=== PATIENT | male | born 1970 | race Two or more races ===

== ENCOUNTER 2018-05-27 18:19 | Inpatient (IN) | payer MEDICAID ==
[~2018-05-27] VITALS: Ht 172.7 cm; Wt 68.0 kg
[2018-05-27 18:20] VITALS: BP 167/67
--- NOTE | 2018-05-27 18:20 | NUR ---
ED Nurse Note: BROUGHT IN BY RA61 FROM WORK DUE TO SEIZURE. PER EMS, PT'S COWORKER FOUND PT HAVING SEIZURE X 60SEC. NO TRAUMA NOTED. PT IS NOW A/OX1, DROWSY. PT ADMITS THAT HE TOOK COCAINE BUT DOES NOT ANSWER ANY OTHER QUESTIONS. UNKNOWN TRIGGER FOR THE SEIZURE ACTIVITIES AND UNKNOWN HX. SEIZURE PRECAUTION DONE, SIDE RAILS PADDED, AGILE PROJECT MANAGER IS PLACED, AIRWAY PATENT.
--- NOTE | 2018-05-27 18:28 | NUR ---
ED Nurse Note: BLOOD SPECIMENS AND URINE COLLECTD AND SENT DOWN TO THE LAB.
--- NOTE | 2018-05-27 18:37 | NUR ---
ED Nurse Note: PT SENT DOWN TO CT HEAD VIA [facility]. VSS.
[2018-05-27 18:41] LABS: BASOPHILS % (AUTO) 1.5 % (0.0-2.0); EOSINOPHILS % (AUTO) 0.3 % (0.0-3.0); HEMOGLOBIN 15.6 G/DL (14.2-18.0); LYMPHOCYTES % (AUTO) 32.2 % (20.0-45.0); MEAN CORPUSCULAR VOLUME 91 FL (80-99); MONOCYTES % (AUTO) 4.8 % (1.0-10.0); NEUTROPHILS % (AUTO) 61.3 % (45.0-75.0); PLATELET COUNT 238 K/UL (150-450); RED BLOOD COUNT 4.93 M/UL (4.70-6.10); RED CELL DISTRIBUTION WIDTH 11.9 % (11.6-14.8); WHITE BLOOD COUNT 5.2 K/UL (4.8-10.8)
--- NOTE | 2018-05-27 18:47 | NUR ---
ED Nurse Note: PT BACK FROM CT HEAD, PT REMAINS STABLE.
[2018-05-27 18:50] LABS: APPEARANCE,URINE SLIGHTLY CLOUDY; BILIRUBIN, URINE NEGATIVE (NEGATIVE); COLOR,URINE PALE YELLOW; GLUCOSE, URINE (UA) NEGATIVE (NEGATIVE); KETONES,URINE NEGATIVE (NEGATIVE); LEUKOCYTE ESTERASE ,URINE NEGATIVE (NEGATIVE); NITRITE,URINE NEGATIVE (NEGATIVE); PH,URINE 5 (4.5-8.0); PROTEIN,URINE 2+ (NEGATIVE); UROBILINOGEN,URINE NORMAL MG/DL (0.0-1.0)
--- NOTE | 2018-05-27 18:50 | NUR ---
ED Nurse Note: PT STATES THAT HE HAS SEIZURE AND TOOK SEIZURE MEDICATION TODAY BUT DOES NOT REMEMBER THE NAME OF THE MED.
[2018-05-27 18:55] LABS: ANION GAP 15 mmol/L (5-15); BLOOD UREA NITROGEN 11 mg/dL (7-18); CALCIUM 8.5 MG/DL (8.5-10.1); CARBON DIOXIDE 24 MMOL/L (21-32); CHLORIDE 105 MMOL/L (98-107); CREATININE 0.9 MG/DL (0.55-1.30); POTASSIUM 3.4 MMOL/L (3.5-5.1); SODIUM 144 MMOL/L (136-145)
--- NOTE | 2018-05-27 18:57 | Emergency Room Report ---
History of Present Illness General Chief Complaint: Seizure Source: EMS Present Illness HPI 47-year-old male p/w seizure. Patient is not providing any history although he is awake but he is not talking to us, per EMS he had witnessed seizure by coworkers, generalized tonic clonic , lasted 1 minute. Did not hit head on ground. +post ictal phase even until now He is awake and talking somewhat, he did admit to using cocaine. He also says that he does have history of seizures. He is not really cooperating with much history Unknown tongue biting/urinary incontinence. Allergies: Coded Allergies: UNABLE TO ASSESS (Unverified , 05/27/18) Patient History Past Medical History: see triage record Past Surgical History: none Pertinent Family History: none Reviewed Nursing Documentation: PMH: Agreed; PSxH: Agreed Nursing Documentation-PMH Past Medical History Deferred: Pt Cognitively Impaired Past Medical History: No Stated History Review of Systems All Other Systems: negative except mentioned in HPI Physical Exam Vital Signs Date Time Temp Pulse Resp B/P (MAP) Pulse Ox O2 Delivery O2 Flow Rate FiO2 05/27/18 18:10 98.4 77 16 165/75 98 Room Air Sp02 EP Interpretation: reviewed, normal General Appearance: other - Postictal/confused/noncooperative Head: normocephalic, atraumatic Eyes: bilateral eye normal inspection, bilateral eye PERRL, bilateral eye EOMI ENT: normal ENT inspection, normal pharynx, normal voice, moist mucus membranes Neck: normal inspection, full range of motion, supple Respiratory: lungs clear, no respiratory distress, no retraction, no accessory muscle use Cardiovascular #1: normal inspection, regular rate, rhythm, no edema, normal capillary refill Cardiovascular #2: 2+ radial (R), 2+ radial (L) Gastrointestinal: normal inspection, non tender, soft, non-distended, no guarding Genitourinary: no CVA tenderness Musculoskeletal: normal inspection, back normal, normal range of motion, non- tender Neurologic: motor strength/tone normal, sensory intact, other - Moving all 4 extremities spontaneously Skin: normal inspection, normal color, no rash, warm/dry, well hydrated, normal turgor Procedures Critical Care Time Critical Care Time Critical care time of 40 minutes, was performed in order to assess and manage the high probability of imminent or life threatening deterioration to neurologic function, with frequent reassessment and excludes all billable procedures. Medical Decision Making Diagnostic Impression: Primary Impression: Seizure disorder Additional Impressions: NSTEMI (non-ST elevated myocardial infarction) Alcohol intoxication ER Course 47-year-old male p/w seizure DDX: Primary seizure, triggered by infection UTI/PNA vs. dehydration vs. medication non compliance Electrolyte disturbance: hypoglycemia vs. hyponatremia vs. hypocalcemia vs. hypomagnesemia Cardiac: Arrythmia/acs Intracranial pathology: intracranial bleed, stroke Tox/alcohol withdrawal Plan: BGM EKG Labs, tox labs Consider CT Ativan PRN / anti seizure meds. ER course: No further seizures in ED Has been stable during ED stay, He is not tachycardic and not tremulous. So at this point I do not believe that the seizures were called caused by alcohol withdrawal. History pertinent is noted to be elevated, patient is now more awake alert, he is not being that cooperative but he is ANO 4, he is not complaining of any chest pain or shortness of breath. We gave him an aspirin. We also loaded him with Keppra. Patient does have T-wave inversions in the lateral leads so I consulted [facility] cardiology, they do not believe this patient is having a STEMI Disposition: Admitted to Dr. Tomlinson EKG Diagnostic Results EP Interpretation: Yes Rate: normal Rhythm: NSR ST Segments: Left ventricular hypertrophy, T wave inversion V5 and V6 ASA given to patient: No Rhythm Strip EP Interpretation: Yes Rate: 70 Rhythm: NSR, no PVCs, no ectopy Chest X-ray CXR: Ordered: Yes 1 view Indication: Chest pain EP interpretation: Yes Interpretation: Mild cardiomegaly Impression: No acute disease Electronically signed by Дмитрий Gonzalez MD Laboratory Tests Test 05/27/18 18:00 05/27/18 18:20 White Blood Count 5.2 K/UL (4.8-10.8) Red Blood Count 4.93 M/UL (4.70-6.10) Hemoglobin 15.6 G/DL (14.2-18.0) Hematocrit 45.0 % (42.0-52.0) Mean Corpuscular Volume 91 FL (80-99) Mean Corpuscular Hemoglobin 31.6 PG (27.0-31.0) H Mean Corpuscular Hemoglobin Concent 34.6 G/DL (32.0-36.0) Red Cell Distribution Width 11.9 % (11.6-14.8) Platelet Count 238 K/UL (150-450) Mean Platelet Volume 7.2 FL (6.5-10.1) Neutrophils (%) (Auto) 61.3 % (45.0-75.0) Lymphocytes (%) (Auto) 32.2 % (20.0-45.0) Monocytes (%) (Auto) 4.8 % (1.0-10.0) Eosinophils (%) (Auto) 0.3 % (0.0-3.0) Basophils (%) (Auto) 1.5 % (0.0-2.0) Sodium Level 144 MMOL/L (136-145) Potassium Level 3.4 MMOL/L (3.5-5.1) L Chloride Level 105 MMOL/L (98-107) Carbon Dioxide Level 24 MMOL/L (21-32) Anion Gap 15 mmol/L (5-15) Blood Urea Nitrogen 11 mg/dL (7-18) Creatinine 0.9 MG/DL (0.55-1.30) Estimate Glomerular Filtration Rate > 60 mL/min (>60) Glucose Level 153 MG/DL (74-106) H Calcium Level 8.5 MG/DL (8.5-10.1) Total Bilirubin 0.3 MG/DL (0.2-1.0) Aspartate Amino Transferase (AST) 29 U/L (15-37) Alanine Aminotransferase (ALT) 25 U/L (12-78) Alkaline Phosphatase 91 U/L (46-116) Total Creatine Kinase 347 U/L (26-308) H Troponin I 1.088 ng/mL (0.000-0.056) Total Protein 7.6 G/DL (6.4-8.2) Albumin 3.9 G/DL (3.4-5.0) Globulin 3.7 g/dL Albumin/Globulin Ratio 1.1 (1.0-2.7) Salicylates Level 0.4 ug/mL (2.8-20) L Acetaminophen Level < 2 MCG/ML (10-30) L Serum Alcohol 454 mg/dL Urine Color Pale yellow Urine Appearance Slightly cloudy Urine pH 5 (4.5-8.0) Urine Specific [place] 1.010 (1.005-1.035) Urine Protein 2+ (NEGATIVE) H Urine Glucose (UA) Negative (NEGATIVE) Urine Ketones Negative (NEGATIVE) Urine Blood 5+ (NEGATIVE) H Urine Nitrite Negative (NEGATIVE) Urine Bilirubin Negative (NEGATIVE) Urine Urobilinogen Normal MG/DL (0.0-1.0) Urine Leukocyte Esterase Negative (NEGATIVE) Urine RBC Tntc /HPF (0 - 0) H Urine WBC 0-2 /HPF (0 - 0) Urine Squamous Epithelial Cells Occasional /LPF Urine Bacteria Moderate /HPF (NONE) H Urine Opiates Screen Negative (NEGATIVE) Urine Barbiturates Screen Negative (NEGATIVE) Phencyclidine (PCP) Screen Negative (NEGATIVE) Urine Amphetamines Screen Negative (NEGATIVE) Urine Benzodiazepines Screen Negative (NEGATIVE) Urine Cocaine Screen Negative (NEGATIVE) Urine Marijuana (THC) Screen Negative (NEGATIVE) CT/MRI/US Diagnostic Results CT/MRI/US Diagnostic Results : Imaging Test Ordered: CT HEAD Impression normal reviewed by me and radiologist Last Vital Signs Date Time Temp Pulse Resp B/P (MAP) Pulse Ox O2 Delivery O2 Flow Rate FiO2 05/27/18 18:20 98.4 73 20 167/67 96 Room Air Disposition: ADMITTED INPATIENT Condition: Serious Scripts Unable to Obtain Active Prescriptions or Reported Meds Дмитрий Gonzalez M.D. May 27, 2018 18:57
[2018-05-27 19:01] LABS: ALANINE AMINOTRANSFERASE 25 U/L (12-78); ALBUMIN 3.9 G/DL (3.4-5.0); ALBUMIN/GLOBULIN RATIO 1.1 (1.0-2.7); ALKALINE PHOSPHATASE 91 U/L (46-116); ASPARTATE AMINO TRANSFERASE 29 U/L (15-37); BILIRUBIN,TOTAL 0.3 MG/DL (0.2-1.0); CREATINE KINASE 347 U/L (26-308)
--- NOTE | 2018-05-27 19:09 | NUR ---
ED Nurse Note: NOTIFIED ERMD REGARDING PT'S RASH AROUND BILATERAL FOREARMS AND TROPONIN LEVEL.
--- NOTE | 2018-05-27 19:09 | NUR ---
HAND-OFF: Report given to AMY RUIZ.PT IN [facility], Doe/TONIE1. NO S/S OF DISTRESS.
[2018-05-27] MEDS ORDERED: DiphenhydrAMINE 50mg/ml Inj IVP ONE (19:15)
[2018-05-27] MEDS ORDERED: Solu-MEDROL 125mg Inj IVP ONE (19:15)
[2018-05-27] MEDS ORDERED: levETIRAcetam 1,000mg/NS100ml 100 ML IVPB ONE (20:00)
--- NOTE | 2018-05-27 21:46 | NUR ---
ED Nurse Note: Report called in to [place] REYES, patient is currently sleeping vital signs stable.
--- NOTE | 2018-05-27 22:11 | NUR ---
NURSE NOTES: Received pt from AMY Crowley. Pt mildly unstable when observed ambulating to the bathroom. Bed in lowest position. Call light within reach. Will continue to monitor.
--- NOTE | 2018-05-27 23:11 | NUR ---
NURSE NOTES: Called and left a message with Dr. Tomlinson regarding admission orders. Awaiting call back.
--- NOTE | 2018-05-27 23:50 | NUR ---
NURSE NOTES: Received the following orders from Dr. Tomlinson: - ASpirin 81 mg PO qd - Ativan 1mg IV Q2/PRN for seizure - Diet NPO - Tylenol 500 mg PO Q4/PRN - Banana bag 60 cc IV for one liter - DVT SCD - AM troponin - code status: follow patients wishes For seizure activity inform Dr. Arndt and for any cardiac issues call Dr. Ventura (Both have been consulted by Dr. Tomlinson already) Will input/carry out orders and will continue to monitor.
[2018-05-28] VITALS: BP 132/51
[2018-05-28] MEDS ORDERED: Acetaminophen 500mg (ES) tab ORAL PRN
[2018-05-28] MEDS ORDERED: LORazepam Inj 2mg/ml 1ml IV PRN
[2018-05-28] MEDS ORDERED: Folic Acid 1 MG, Multivitamin - 12 Injection 10 ML, Thiamine HCl 100 MG in Sodium Chlor... IV ONE ×2 (02:00→08:00)
[2018-05-28 04:00] VITALS: BP 130/63
--- NOTE | 2018-05-28 07:16 | NUR ---
HAND-OFF: Report given to AMY Sargent. Pt stable and p200 applied. Addendum: 05/28/18 at 0742 by Jamaica Becerra RN HAND-OFF: Report given to RN. Aisha Pt stable. No p200.
--- NOTE | 2018-05-28 07:17 | NUR ---
NURSE NOTES: Received report from [place]/RN, Patient is awake and alert, No distress/SOB noted. IV intact. Bed in low position, Call light in reach. Will continue plan of care.
[2018-05-28 08:00] VITALS: BP 133/81
[2018-05-28] MEDS: Thiamine 100mg tab ORAL SCH (08:48)
[2018-05-28] MEDS: Aspirin Baby 81mg NG SCH (08:48)
--- NOTE | 2018-05-28 09:54 | NUR ---
NURSE NOTES: Per pharmacy, can Y-Site Banana bag IV and magnesium sulfate IV. Noted. Will continue to monitor patient.
--- NOTE | 2018-05-28 10:07 | NUR ---
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 NSTEMI ALCOHOL INTOXICATION 98.4 77 16 165/75 98% ON RA TROPONIN(+) 1.088 SERUM ALCOHOL+454 IS: 1L NS BOLUS IV KEPPRA X1 ASA PO IV SOLUMEDROL IV BENADRYL CT HEAD CXR : TO TELEMETRY PLAN: SEIZURE PRECAUTIONS NEURO CHECKS Addendum: 05/28/18 at 1025 by BALJINDER TAN LVN LVN INTERQUAL CRITERIA MET
--- NOTE | 2018-05-28 10:55 | Diagnostic Imaging Report ---
Indication: Headache Technique: Contiguous 5 mm thick transaxial imaging of the head obtained in a Siemens Sensation [address] scanner. Soft tissue and bone windows generated. Automatic Exposure Control was utilized. Total Dose length Product (DLP): 1453.[address] Dose Index Volume (CTDIvol): 70.38 mGy Comparison: none Findings: The size and configuration of the cortical sulci, basal cisterns, and ventricles are within normal limits for age. There is no mass effect, midline shift, or edema identified. There is no evidence of acute hemorrhage or abnormal intra-axial or extra-axial fluid collections. The bones and soft tissues are unremarkable. Impression: No mass effect, edema or acute bleed. The CT scanner at [facility] is accredited by the [employer] and the scans are performed using dose optimization techniques as appropriate to a performed exam including Automatic Exposure control.
--- NOTE | 2018-05-28 11:03 | Consultation ---
Consult Note Consult Note HPI 47-year-old male p/w seizure. Patient is not providing any history although he is awake but he is not talking to us, per EMS he had witnessed seizure by coworkers, generalized tonic clonic , lasted 1 minute. Did not hit head on ground. +post ictal phase even until now He is awake and talking somewhat, he did admit to using cocaine. He also says that he does have history of seizures. He is not really cooperating with much history Unknown tongue biting/urinary incontinence. none allergy interviewed examined Assessment/Plan Sz NSTEMI Etoh toxicity Hydtrate asa nitro IV fluids protonix thiamin per orders Gaetano Cantor MD May 28, 2018 11:03
[2018-05-28 11:13] LABS: ANION GAP 18 mmol/L (5-15); BLOOD UREA NITROGEN 15 mg/dL (7-18); CALCIUM 8.3 MG/DL (8.5-10.1); CARBON DIOXIDE 20 MMOL/L (21-32); CHLORIDE 106 MMOL/L (98-107); CREATININE 0.9 MG/DL (0.55-1.30); SODIUM 144 MMOL/L (136-145)
[2018-05-28 11:24] LABS: ALANINE AMINOTRANSFERASE 24 U/L (12-78); ALBUMIN 3.7 G/DL (3.4-5.0); ALKALINE PHOSPHATASE 89 U/L (46-116); ASPARTATE AMINO TRANSFERASE 31 U/L (15-37); BILIRUBIN,TOTAL 0.4 MG/DL (0.2-1.0); CHOLESTEROL 219 MG/DL (< 200); HDL CHOLESTEROL 105 MG/DL (40-60); PHOSPHORUS 3.9 MG/DL (2.5-4.9); TRIGLYCERIDES 59 MG/DL (30-150)
--- NOTE | 2018-05-28 11:25 | Diagnostic Imaging Report ---
Indication: Dyspnea Comparison: None A single view chest radiograph was obtained. Findings: Cardiomediastinal appearance is prominent. The lungs are low in volume but clear. Pulmonary vascularity is appropriate. The diaphragmatic contour is smooth and costophrenic angles are sharp. No pleural effusions are identified. The bones are unremarkable. Impression: No acute findings
[2018-05-28] MEDS: Nitroglycerin Patch 0.4mg TDERMAL SCH (11:47)
[2018-05-28 12:00] VITALS: BP 158/76
[2018-05-28] MEDS: D5 1/2NS w/KCl 20mEq 1,000 ML IV SCH (12:04)
--- NOTE | 2018-05-28 14:56 | Cardiology Report ---
APPROVED REPORT EKG Measurement Heart [id number] Normal sinus rhythm Left ventricular hypertrophy with QRS widening and repolarization abnormality Abnormal ECG
[2018-05-28 16:00] VITALS: BP 130/63
[2018-05-28] MEDS ORDERED: Gadavist 7.5mMol/7.5ml vial IV PRN (17:30)
--- NOTE | 2018-05-28 19:30 | NUR ---
NURSE NOTES: Report received form AMY Leonard. Observed pt lying on the bed, awake, denies any pain at this time. A/O x4. SR with security monitor. On Room air with no signs of sob. Skin intact. Pt is ambulatory and went to bathroom with minimal assistance. IV on L FA 20G, running D5 1/2NS KCL 20meq and banana bag, intact and patent. Bed in the lowest position. Side rails up x2. Will continue to monitor.
[2018-05-28 20:00] VITALS: BP 135/56
--- NOTE | 2018-05-28 20:32 | Cardiology Progress Note ---
Assessment/Plan Assessment/Plan The patient is seen and examined, full consult note will be dictated shortly. Objective Last 24 Hour Vital Signs Date Time Temp Pulse Resp B/P (MAP) Pulse Ox O2 Delivery O2 Flow Rate FiO2 05/28/18 16:00 96.9 73 18 130/63 (85) 97 05/28/18 16:00 81 05/28/18 12:00 89 05/28/18 12:00 98.4 81 17 158/76 (103) 96 05/28/18 11:47 130/63 05/28/18 09:00 Room Air 05/28/18 08:00 84 05/28/18 08:00 98.4 89 18 133/81 (98) 96 05/28/18 07:08 Room Air 05/28/18 04:00 73 05/28/18 04:00 96.9 73 18 130/63 (85) 97 05/28/18 00:00 65 05/28/18 00:00 98.7 70 18 132/51 (78) 95 05/27/18 21:47 98.4 73 20 167/67 96 Room Air Laboratory Tests Test 05/28/18 06:10 Sodium Level 144 MMOL/L (136-145) Potassium Level 4.0 MMOL/L (3.5-5.1) Chloride Level 106 MMOL/L (98-107) Carbon Dioxide Level 20 MMOL/L (21-32) L Anion Gap 18 mmol/L (5-15) H Blood Urea Nitrogen 15 mg/dL (7-18) Creatinine 0.9 MG/DL (0.55-1.30) Estimat Glomerular Filtration Rate > 60 mL/min (>60) Glucose Level 114 MG/DL (74-106) H Hemoglobin A1c 5.5 % (4.3-6.0) Uric Acid 9.3 MG/DL (2.6-7.2) H Calcium Level 8.3 MG/DL (8.5-10.1) L Phosphorus Level 3.9 MG/DL (2.5-4.9) Magnesium Level 1.8 MG/DL (1.8-2.4) Total Bilirubin 0.4 MG/DL (0.2-1.0) Aspartate Amino Transf (AST/SGOT) 31 U/L (15-37) Alanine Aminotransferase (ALT/SGPT) 24 U/L (12-78) Alkaline Phosphatase 89 U/L (46-116) Troponin I 1.062 ng/mL (0.000-0.056) C-Reactive Protein, Quantitative < 0.4 mg/dL (0.00-0.90) Total Protein 7.4 G/DL (6.4-8.2) Albumin 3.7 G/DL (3.4-5.0) Globulin 3.7 g/dL Albumin/Globulin Ratio 1.0 (1.0-2.7) Triglycerides Level 59 MG/DL (30-150) Cholesterol Level 219 MG/DL (< 200) H LDL Cholesterol 98 mg/dL (<100) HDL Cholesterol 105 MG/DL (40-60) H Cholesterol/HDL Ratio 2.1 (3.3-4.4) L Thyroid Stimulating Hormone (TSH) 0.305 uiU/mL (0.358-3.740) Rapid Plasma Reagin Pending Treponema pallidum Ab (FTA-ABS) Pending Microbiology Date/Time Source Procedure Growth Status 05/27/18 18:20 Urine,Clean Catch Urine Culture - Preliminary NO GROWTH Resulted Hector Ventura MD May 28, 2018 20:32
[2018-05-28] MEDS: dilTIAZem HCl 30mg tab ORAL SCH (21:55)
--- NOTE | 2018-05-28 23:02 | Consultation ---
History of Present Illness General Chief Complaint: Seizure Present Illness HPI 47 yo male with history of alcohol dependence, had a seizure, and withdrawal symptoms the pt was tachy and tremulous the pt was not able to provide hx Allergies: Coded Allergies: No Known Allergies (Unverified , 05/28/18) Medication History Scheduled Hydrochlorothiazide* (Hydrochlorothiazide*), 25 MG ORAL DAILY, (Reported) Patient History Limited by: medical condition History Provided By: Patient, Medical Record, PMD Healthcare decision maker mary ellen [phone] Resuscitation status Full Code Advanced Directive on File Review of Systems Psychiatric: Reports: anxiety, depressed feelings, emotional problems Physical Exam General Appearance: alert, agitated Last 24 Hour Vital Signs Date Time Temp Pulse Resp B/P (MAP) Pulse Ox O2 Delivery O2 Flow Rate FiO2 05/28/18 21:55 70 149/71 05/28/18 16:00 96.9 73 18 130/63 (85) 97 05/28/18 16:00 81 05/28/18 12:00 89 05/28/18 12:00 98.4 81 17 158/76 (103) 96 05/28/18 11:47 130/63 05/28/18 09:00 Room Air 05/28/18 08:00 84 05/28/18 08:00 98.4 89 18 133/81 (98) 96 05/28/18 07:08 Room Air 05/28/18 04:00 73 05/28/18 04:00 96.9 73 18 130/63 (85) 97 05/28/18 00:00 65 05/28/18 00:00 98.7 70 18 132/51 (78) 95 Laboratory Tests Test 05/28/18 06:10 Sodium Level 144 MMOL/L (136-145) Potassium Level 4.0 MMOL/L (3.5-5.1) Chloride Level 106 MMOL/L (98-107) Carbon Dioxide Level 20 MMOL/L (21-32) L Anion Gap 18 mmol/L (5-15) H Blood Urea Nitrogen 15 mg/dL (7-18) Creatinine 0.9 MG/DL (0.55-1.30) Estimat Glomerular Filtration Rate > 60 mL/min (>60) Glucose Level 114 MG/DL (74-106) H Hemoglobin A1c 5.5 % (4.3-6.0) Uric Acid 9.3 MG/DL (2.6-7.2) H Calcium Level 8.3 MG/DL (8.5-10.1) L Phosphorus Level 3.9 MG/DL (2.5-4.9) Magnesium Level 1.8 MG/DL (1.8-2.4) Total Bilirubin 0.4 MG/DL (0.2-1.0) Aspartate Amino Transf (AST/SGOT) 31 U/L (15-37) Alanine Aminotransferase (ALT/SGPT) 24 U/L (12-78) Alkaline Phosphatase 89 U/L (46-116) Troponin I 1.062 ng/mL (0.000-0.056) C-Reactive Protein, Quantitative < 0.4 mg/dL (0.00-0.90) Total Protein 7.4 G/DL (6.4-8.2) Albumin 3.7 G/DL (3.4-5.0) Globulin 3.7 g/dL Albumin/Globulin Ratio 1.0 (1.0-2.7) Triglycerides Level 59 MG/DL (30-150) Cholesterol Level 219 MG/DL (< 200) H LDL Cholesterol 98 mg/dL (<100) HDL Cholesterol 105 MG/DL (40-60) H Cholesterol/HDL Ratio 2.1 (3.3-4.4) L Thyroid Stimulating Hormone (TSH) 0.305 uiU/mL (0.358-3.740) Rapid Plasma Reagin Pending Treponema pallidum Ab (FTA-ABS) Pending Height (Feet): 5 Height (Inches): 8.00 Weight (Pounds): 150 Medications Current Medications Medications (Trade) Dose Ordered Sig/Ruthann Route PRN Reason Start Time Stop Time Status Last Admin Dose Admin Acetaminophen (Tylenol) 500 mg Q4H PRN ORAL Mild Pain/Temp > 100.5 05/28/18 00:00 06/27/18 00:00 Aspirin (ASA) 81 mg DAILY NG 05/28/18 09:00 06/27/18 08:59 05/28/18 08:48 Dextrose/ Electrolytes 1,000 ml @ 75 mls/hr [id number] IV 05/28/18 12:00 06/27/18 11:59 05/28/18 12:04 Diazepam (Valium) 10 mg EVERY 2 HOURS PRN ORAL For Anxiety 05/27/18 23:15 06/03/18 23:14 Diltiazem HCl (Cardizem) 30 mg EVERY 8 HOURS ORAL 05/28/18 22:00 06/27/18 21:59 05/28/18 21:55 Folic Acid (Folate) 1 mg DAILY ORAL 05/28/18 09:00 06/27/18 08:59 05/28/18 08:48 Folic Acid 1 mg/ Multivitamins 10 ml/Thiamine HCl 100 mg/Sodium Chloride 1,011.2 ml @ 60 mls/hr ONCE ONCE IV 05/28/18 08:00 05/29/18 00:51 05/28/18 09:38 Gadobutrol (Gadavist) 7.5 mmol NOW PRN IV Radiology Procedure 05/28/18 17:30 06/01/18 17:26 Levetiracetam (Keppra) 500 mg Q12HR NG 05/29/18 09:00 06/28/18 08:59 Lorazepam (Ativan 2mg/ml 1ml) 1 mg Q2HR PRN IV For Seizures 05/28/18 00:00 06/04/18 00:00 Mirtazapine (Remeron) 7.5 mg BEDTIME ORAL 05/28/18 21:00 06/27/18 20:59 05/28/18 21:47 Nitroglycerin (Ntg) 1 patch Q24H TDERMAL 05/28/18 11:00 06/27/18 10:59 05/28/18 11:47 Pantoprazole (Protonix) 40 mg Q12HR ORAL 05/28/18 11:00 06/27/18 10:59 05/28/18 21:46 Thiamine HCl (Vitamin B1) 100 mg DAILY ORAL 05/28/18 09:00 06/27/18 08:59 05/28/18 08:48 Assessment/Plan Problem List: (1) Alcohol dependence ICD Codes: F10.20 - Alcohol dependence, uncomplicated SNOMED: 76349198 (2) Alcohol withdrawal ICD Codes: F10.239 - Alcohol dependence with withdrawal, unspecified SNOMED: [id number] Assessment/Plan Valium prn thiamine Remeron folate Ryan Raphael MD May 28, 2018 23:02
[2018-05-29] VITALS: BP 138/56
[2018-05-29] MEDS: D5 1/2NS w/KCl 20mEq 1,000 ML IV SCH ×2 (01:26→14:08)
[2018-05-29 04:00] VITALS: BP 152/93
--- NOTE | 2018-05-29 04:00 | Consultation ---
DATE OF CONSULTATION: 05/28/2018 NEUROLOGIC CONSULTATION CONSULTING PHYSICIAN: Ziggy Arndt M.D. This is the first [facility] admission for this 47-year-old probably right-handed man who was admitted with a witnessed seizure. I was asked to see the patient because of his seizure. HISTORY OF PRESENT ILLNESS: The patient has had a history of migraine headaches going back to childhood. There is no history of seizure disorder in childhood. The patient states he is a heavy drinker. He started drinking about a week ago. He also apparently admitted to cocaine. However, he has never had any seizures in the past. The patient cannot give a history. He was apparently noted to have a generalized tonic-clonic seizure lasting about a minute by his coworkers. He was postictal, not talking emergency room. His CBC is also normal with a white count of 5200, a hemoglobin 15.6, platelet count of 338,000. His chemistries were normal except a creatinine of 3.4, glucose of 153. CPK is 347. His troponin was 1.08, today it is 1.062. Today, the carbon dioxide is 20 with an anion gap of 18, glucose 114, uric acid 10.3, calcium 8.3. Cholesterol 219 with HDL cholesterol 105. TSH is 0.305. His hemoglobin A1c is 5.5. Drug screen revealed a serum alcohol of 454, acetaminophen level less than 2. His urine cocaine screen is negative. Rest of the drug screen was negative. Urinalysis is pretty much unremarkable. Urine protein was 2. Urine blood was 5. He had a CT scan of the brain, which was normal. This is without contrast. Chest x-ray is basically intact. There are no acute findings. The electrocardiogram yesterday revealed left ventricular hypertrophy, QRS widening, and repolarization abnormality. I was asked to see the patient today for a seizure. The patient denies any previous history of head injuries or strokes. He denies any memory loss. There is no language disorder. He denies spontaneous diplopia. Probably denies blurred vision. No muscle weakness. He has occasional tremors in his hands after he drinks alcohol. There is no hearing loss or dizzy spells, but he has bilateral tinnitus in both ears. He has no gait disorder, paresthesias, or dysesthesias. He cannot tell if he had any incontinence or tongue biting. Postictal headaches because he certainly does not have a headache now. He has also denied taking illegal drugs. He denied smoking. Dr. Gaetano Cantor saw the patient in consultation. See his note. There is no family history of neurologic disease. PAST MEDICAL HISTORY/PAST MEDICAL ILLNESSES: 1. Alcohol and drug dependent personality. 2. He denies all other past medical illnesses. ALLERGIES: None. HABITS: See above. SOCIAL HISTORY: He is , has 2 children, in good health. SURGERIES: He did have jaw surgery in the past, reason is unclear. FAMILY HISTORY: His father is . He does not know why. His mother and siblings are in good health. REVIEW OF SYSTEMS: CONSTITUTIONAL: His appetite is good. His weight is stable. CARDIAC: Denies any palpitation or shortness of breath. There is no leg edema. The rest of review of systems is noncontributory. PHYSICAL EXAMINATION: GENERAL: This is a well-developed, well-nourished man lying in bed, in no acute distress. VITAL SIGNS: Blood pressure is 158/76, temperature is 98.4 degrees, pulse rate is 81, respiratory rate 17, pulse oximetry is 96. HEENT: Examination of head, ears, eyes, nose, mouth, throat is normal. I could not see any tongue lesions. NECK: The neck is supple. There is no tenderness. Carotids are +2 with bilateral transmitted murmurs noted or bilateral bruits. LUNGS: Clear to auscultation. CARDIOVASCULAR: He has a grade 3/6 and also has a palpable thrill in the right second intercostal space, midclavicular line. That is a systolic murmur. There is S1 and also S2, increases with respiration, radiates to the left sternal border and to the apex. ABDOMEN: The abdomen is nearly scaphoid. Bowel sounds intact. There is no tenderness, masses, or organomegaly. BACK: There is no tenderness to percussion. EXTREMITIES: The extremities are basically intact. There is no edema. Peripheral pulses are +2 even in the lower extremities. NEUROLOGIC: MENTAL STATUS: He is alert and awake. Judgment could not be tested. Affect is appropriate. Memory, past memory was intact to his birthday, 1970. Immediate recall is 3/3 objects. Recent recall 0/3 objects at 5 minutes. Intellect, similarities are concrete i.e., cat and dog, there was nothing similar to them; train and bicycle, both have wheels. Orientation, time - he knew it is 05/28/2018 and knew it was Saturday; place - he did not know where he was except he knew he was in the hospital, he did not know the name of the hospital; person - he was oriented to person. Language function, as far as I can tell, his spoken speech was fairly fluent in Gabonese. He could understand my imperfect Gabonese. He can repeat a simple sentence. He could spell world in [place]onese forwards "[place]," but could not spell it backwards. CRANIAL NERVE EXAMINATION: CRANIAL NERVE II: Visual santos are intact to confrontation. Fundi were benign. CRANIAL NERVES III, IV, AND : Extraocular motility was full with saccadic smooth pursuit noted. Some nystagmus noted. The pupils are approximately 5 mm, round, and light reactive. CRANIAL NERVE V: Facial and corneal sensation is intact bilaterally. Pterygoid strength is 5/5. CRANIAL NERVE VII: Facial strength is 5/5 bilaterally. CRANIAL NERVE VIII: Auditory acuity is basically intact bilaterally. CRANIAL NERVES IX AND X: Gag is intact bilaterally. CRANIAL NERVE XI: Sternocleidomastoid strength is 5/5. CRANIAL NERVE XII: Tongue protrudes in the midline without fasciculations or atrophy. MUSCLE EXAMINATION: Muscle bulk and tone are normal. Strength 5/5 proximally and distally without pronator drift. There is very little to no tremor with hands extended and no asterixis. REFLEXES: +2 in the upper extremities, +2 at the knees, 0 at the ankles with downgoing toes on testing for Babinski response. COORDINATION: Hbaqkv-ka-ywgy, rapid alternating movements, yukb-fi-zbvn testing are intact. GAIT AND STATION: Not tested. SENSORY: He probably had decreased vibration to his shins. Pinprick and proprioception and fine touch were normal. IMPRESSION: The patient probably has alcohol-induced seizure, probably partly withdrawal. He also has encephalopathy. Initially, it is probably postictal and he may also be slightly postictal at this time. There is a question if he had any seizures in the past. He told me he has not had seizures. The patient was placed on Keppra 1000 mg 1 bag given probably and given folic acid, lorazepam p.r.n. and Remeron, which seizure threshold fluids. Keppra itself can also change mental status. If he continues to have problems with this , we may want to reduce the Keppra to 500 mg b.i.d.; however, in my experience, patients discharge. It is one of the reasons why treat him. The patient probably needs EEG and MRI scan of the brain since it does not sound like he had any in the past. I do not think he needs a lumbar puncture at this time. PLAN: 1. EEG awake and asleep. 2. MRI scan of the brain with seizure protocol. 3. Continue to treat for alcohol withdrawal. 4. RPR and FTA. Thank you for this interesting case. Ziggy Arndt MD DR: HARSHA JOB#: [id number] CC:
--- NOTE | 2018-05-29 04:00 | History and Physical Report ---
DATE OF ADMISSION: 05/27/2018 NOTE: POOR AUDIO HISTORY OF PRESENT ILLNESS: The patient has a history of alcohol abuse, had a seizure, and withdrawal symptoms at this point. He is now tachycardic and tremulous. He states that he does have a history of seizures. CT scan of brain was negative. He did also have an elevated troponin, T-wave inversions in the lateral leads, admitted for non-STEMI as well as seizures. The patient has history of alcohol. Denies any nausea, vomiting, or diarrhea. details. Denies shortness of breath. Denies cough. Denies fever or chills. Denies headache. Denies chest pain. PAST MEDICAL HISTORY: Alcohol abuse and hypertension. PAST SURGICAL HISTORY: . ALLERGIES: No known allergies. MEDICATIONS: None. FAMILY HISTORY: Noncontributory. SOCIAL HISTORY: Denies history of drug abuse. Denies history of smoking. Does have history of alcohol abuse. REVIEW OF SYSTEMS: HEENT: Denies headaches. Denies shortness of breath. Denies cough. CARDIOVASCULAR: Denies chest pain. . [employer]: No change in speech pattern. seizures at this time. PHYSICAL EXAMINATION: VITAL SIGNS: Temperature 98.4, pulse is 89, and blood pressure 133/81. HEENT: PERRLA. NECK: Supple. No lymphadenopathy. CHEST: Clear to auscultation CARDIOVASCULAR: Regular rate and rhythm. No murmurs or extra sounds. GASTROINTESTINAL: Soft, nontender, and nondistended. No organomegaly. EXTREMITIES: No edema. Moves all four extremities. . ASSESSMENT: 1. Seizure. 2. Non-STEMI. 3. Rule out alcohol withdrawal. PLAN: I have asked Dr. Raphael, Dr. Sakshi Dr. to see the patient for the above-mentioned diagnoses and treatment. Shala Tomlinson M.D. DR: ADALI JOB#: [id number] CC:
[2018-05-29] MEDS: dilTIAZem HCl 30mg tab ORAL SCH ×3 (06:00→21:32)
--- NOTE | 2018-05-29 07:40 | NUR ---
HAND-OFF: Report given to AMY Cunningham. No acute distress noted at this time.
--- NOTE | 2018-05-29 07:41 | NUR ---
NURSE NOTES: Received report from AMY Lugo. Patient is resting in bed, sleeping in semi fowlers position. Patient is on NPO status. No signs and symptoms of acute distress at this time. Safety precaution in place; two side rails up, call light and bed side table within reach, bed in lowest position, brakes and alarm on . Will continue to monitor .
[2018-05-29 08:00] VITALS: BP 146/54
[2018-05-29] MEDS: levETIRAcetam 500mg/5ml Liquid NG SCH ×2 (09:26→21:32)
[2018-05-29] MEDS: Thiamine 100mg tab ORAL SCH (09:26)
[2018-05-29] MEDS: Aspirin Baby 81mg NG SCH (09:26)
--- NOTE | 2018-05-29 09:41 | General Progress Note ---
Assessment/Plan Problem List: (1) Alcohol intoxication ICD Codes: F10.929 - Alcohol use, unspecified with intoxication, unspecified SNOMED: 87746379 (2) Seizure disorder ICD Codes: G40.909 - Epilepsy, unspecified, not intractable, without status epilepticus SNOMED: 653245470 (3) NSTEMI (non-ST elevated myocardial infarction) ICD Codes: I21.4 - Non-ST elevation (NSTEMI) myocardial infarction SNOMED: 59499982 Status: progressing Assessment/Plan no cp check troponin nstemi etoh abuse Subjective ROS Limited/Unobtainable: Yes Allergies: Coded Allergies: No Known Allergies (Unverified , 05/28/18) Objective Last 24 Hour Vital Signs Date Time Temp Pulse Resp B/P (MAP) Pulse Ox O2 Delivery O2 Flow Rate FiO2 05/29/18 08:00 98.0 61 20 146/54 (84) 97 05/29/18 06:00 59 140/53 05/29/18 04:00 57 05/29/18 04:00 98.1 73 19 152/93 (112) 97 05/29/18 00:00 64 05/29/18 00:00 98.3 66 16 138/56 (83) 95 05/28/18 21:55 70 149/71 05/28/18 21:00 Room Air 05/28/18 20:00 98.1 63 18 135/56 (82) 97 05/28/18 20:00 72 05/28/18 16:00 96.9 73 18 130/63 (85) 97 05/28/18 16:00 81 05/28/18 12:00 89 05/28/18 12:00 98.4 81 17 158/76 (103) 96 05/28/18 11:47 130/63 Intake and Output 05/28/18 05/29/18 18:59 06:59 Intake Total 225 ml Balance 225 ml Intake IV Total 225 ml Height (Feet): 5 Height (Inches): 8.00 Weight (Pounds): 150 Cardiovascular: regular rhythm Respiratory/Chest: lungs clear Abdomen: soft Shala Tomlinson MD May 29, 2018 09:41
[2018-05-29] MEDS: Nitroglycerin Patch 0.4mg TDERMAL SCH (11:22)
[2018-05-29 12:00] VITALS: BP 137/56
--- NOTE | 2018-05-29 13:49 | Diagnostic Imaging Report ---
Indication: Seizure Technique: The head was imaged in a 1.5 Kiersten magnet. Sequences obtained include sagittal and axial T1 FLAIR, axial T2 fast spin echo with fat saturation, axial T2 FLAIR, diffusion and ADC map. Gadolinium-enhanced axial and coronal T1 FLAIR obtained also. Comparison: None Findings: The size, contour, and configuration of the sulci, ventricles, and basal cisterns appear normal. Young-white differentiation is normal. There is no restricted diffusion. There is no mass effect, midline shift, edema, or hemorrhage. There are no abnormal extra-axial or intra-axial fluid collections. The corpus callosum is unremarkable. The brainstem and cerebellum are unremarkable. The sella is unremarkable. Bone marrow signal within the visualized osseous structures appears age appropriate and unremarkable otherwise. There is mild mucosal thickening in the paranasal sinuses. No abnormal enhancement is identified. Impression: Negative MRI brain with and without contrast.
--- NOTE | 2018-05-29 15:04 | Nephrology Progress Note ---
Assessment/Plan Problem List: (1) Seizure disorder (2) Alcohol intoxication (3) NSTEMI (non-ST elevated myocardial infarction) Assessment Sz NSTEMI Etoh toxicity Plan Hydtrate asa nitro IV fluids protonix thiamin per orders Subjective ROS Limited/Unobtainable: No Objective Objective Last 24 Hour Vital Signs Date Time Temp Pulse Resp B/P (MAP) Pulse Ox O2 Delivery O2 Flow Rate FiO2 05/29/18 14:07 64 137/56 05/29/18 12:00 69 05/29/18 12:00 98.1 64 20 137/56 (83) 98 05/29/18 11:22 137/56 05/29/18 09:00 Room Air 05/29/18 08:00 98.0 61 20 146/54 (84) 97 05/29/18 08:00 57 05/29/18 06:00 59 140/53 05/29/18 04:00 57 05/29/18 04:00 98.1 73 19 152/93 (112) 97 05/29/18 00:00 64 05/29/18 00:00 98.3 66 16 138/56 (83) 95 05/28/18 21:55 70 149/71 05/28/18 21:00 Room Air 05/28/18 20:00 98.1 63 18 135/56 (82) 97 05/28/18 20:00 72 05/28/18 16:00 96.9 73 18 130/63 (85) 97 05/28/18 16:00 81 Intake and Output 05/28/18 05/29/18 19:00 07:00 Intake Total 225 ml Balance 225 ml IV Total 225 ml Height (Feet): 5 Height (Inches): 8.00 Weight (Pounds): 150 General Appearance: no apparent distress Cardiovascular: normal rate Respiratory/Chest: lungs clear Abdomen: soft Gaetano Cantor MD May 29, 2018 15:04
--- NOTE | 2018-05-29 15:45 | NUR ---
CASE MANAGEMENT:REVIEW 05/29/18 SI: SEIZURE. NSTEMI ALCOHOL INTOXICATION 98.1 64 20 137/56 98% ON RA IS: IMDUR PO QD KEPPRA PO Q12 CARDIZEM PO Q8HRS REMERON PO QHS IVF@75/HR ASA PO QD IV ATIVAN Q2HRS PRN : TELEMETRY STATUS
[2018-05-29 16:00] VITALS: BP 134/58
[2018-05-29] MEDS ORDERED: Imdur 30mg tab ORAL SCH (16:00)
--- NOTE | 2018-05-29 18:30 | Progress Note ---
DATE: 05/29/2018 SUBJECTIVE: The patient is about the same. No seizures overnight. His EEG is normal. RPR is also normal. He did not get his MRI scan of the brain just yet. PHYSICAL EXAMINATION: VITAL SIGNS: Temperature is 98 degrees, pulse is 61 and regular, respiratory rate is 20, blood pressure 146/54. MENTAL STATUS: He is alert and awake. Orientation, date - 05/29/2018, place - [facility], person - oriented to person. Language functions are normal. CRANIAL NERVE EXAMINATION: CRANIAL NERVE II: Visual santos are intact. CRANIAL NERVES III, IV, AND : Extraocular motility was full. CRANIAL NERVE V: Facial and corneal sensations were intact to fine touch. CRANIAL NERVE VII: Facial strength is 5/5. CRANIAL NERVE VIII: Not tested. CRANIAL NERVES XI AND XII: Normal. MUSCULOSKELETAL: Muscle bulk and tone are normal. Strength is 5/5. There is no tremor or asterixis. REFLEXES: +1 in the upper extremities, +2 at the knees, 0 at the ankles. COORDINATION: Jbcfdc-em-tvdz, xxlu-ww-zpbo testing are intact. IMPRESSION: The patient does not show much signs of alcohol withdrawal at this point. The patient's MRI is pending. PLAN: Probably, we wanted to taper his Keppra. After a few days ago, we can do it as an outpatient. Ziggy Arndt MD DR: HARSHA JOB#: [id number] CC:
--- NOTE | 2018-05-29 18:30 | Electroencephalogram ---
ELECTROENCEPHALOGRAM REPORT DATE OF TRACIN05/28/2018 READING PHYSICIAN: Henry Sanchez M.D. HISTORY: This EEG was performed on a 47-year-old gentleman with a history of cocaine and alcohol abuse, who was noted to have a seizure of a generalized nature. The purpose of this EEG was to evaluate the patient for ongoing ictal or interictal phenomena and to better delineate the type of seizure disorder. TECHNICAL NOTE: This EEG was performed on a [employer] Digital [employer] Unit with electrodes placed on the scalp according to the International 10-20 system. Hvwun-ss-hsfiv and hzfhq-jk-aod montages were used. The EEG was technically satisfactory and was performed predominantly during the awake state with brief periods of drowsiness. OBSERVATIONS: In the best awake state, the background activity consisted of 9-9.5 Hz, posteriorly predominant, well-developed, alpha waveforms, which attenuated on eye opening. Drowsiness was characterized by dissolution of the alpha rhythm and the appearance of slower frequencies in 6-7 Hz theta range. Photic stimulation was performed at various different frequencies and produced no abnormalities. No focal abnormalities or epileptiform discharges were seen. IMPRESSION: Normal awake and drowsy EEG. COMMENT: A normal EEG does not rule out a seizure disorder. Henry Sanchez M.D., M.S.P.H. DR: KALYANI JOB#: [id number] MTDDouglas
--- NOTE | 2018-05-29 19:47 | NUR ---
HAND-OFF: Report given to AMY Gabrile.
--- NOTE | 2018-05-29 19:52 | NUR ---
NURSE NOTES: Report received from AMY Yeager. Pt is lying comfortably in semi-fowlers with no sign of distress. A+Ox4, denies pain/SOB. Respirations are even and unlabored on room air. IV site is patent, intact, and running fluids @ prescribed rate. Bed is at lowest position, brakes engaged, siderails x2, bed alarm on, and call light within reach. Pt is in stable condition at this time; will continue to monitor.
[2018-05-29 20:00] VITALS: BP 146/51
--- NOTE | 2018-05-29 23:04 | General Progress Note ---
Assessment/Plan Assessment/Plan (1) Alcohol dependence ICD Codes: F10.20 - Alcohol dependence, uncomplicated SNOMED: 58129527 (2) Alcohol withdrawal ICD Codes: F10.239 - Alcohol dependence with withdrawal, unspecified SNOMED: 791900846 Assessment/Plan Valium prn thiamine Remeron folate Subjective Constitutional: Reports: malaise, weakness Neurologic/Psychiatric: Reports: anxiety, depressed Allergies: Coded Allergies: No Known Allergies (Unverified , 05/28/18) Objective Last 24 Hour Vital Signs Date Time Temp Pulse Resp B/P (MAP) Pulse Ox O2 Delivery O2 Flow Rate FiO2 05/29/18 21:32 63 146/51 05/29/18 20:00 98.5 63 20 146/51 (82) 95 05/29/18 16:55 134/58 05/29/18 16:00 59 05/29/18 16:00 98.2 63 20 134/58 (83) 95 05/29/18 14:07 64 137/56 05/29/18 12:00 69 05/29/18 12:00 98.1 64 20 137/56 (83) 98 05/29/18 11:22 137/56 05/29/18 09:00 Room Air 05/29/18 08:00 98.0 61 20 146/54 (84) 97 05/29/18 08:00 57 05/29/18 06:00 59 140/53 05/29/18 04:00 57 05/29/18 04:00 98.1 73 19 152/93 (112) 97 05/29/18 00:00 64 05/29/18 00:00 98.3 66 16 138/56 (83) 95 Intake and Output 05/28/18 05/29/18 19:00 07:00 Intake Total 225 ml Balance 225 ml IV Total 225 ml Height (Feet): 5 Height (Inches): 8.00 Weight (Pounds): 150 General Appearance: alert, agitated Ryan Raphael MD May 29, 2018 23:04
--- NOTE | 2018-05-29 23:54 | Cardiology Progress Note ---
Assessment/Plan Assessment/Plan 1. Elevated troponin level in a patient with seizure disease possibly due to CK rise associated with tonic clonic activities, although RV strain in association with pulmonary HTN could possibly cause elevation of troponin level. 2. Hx of cocaine abuse, urine tox with negative this admission, no e/o cardiomyopathy on echo with LVEF at 55%. 3. Severe pulmonary HTN, pulmonary consult. Subjective Subjective Sinus rhythm at rate of 63. Objective Last 24 Hour Vital Signs Date Time Temp Pulse Resp B/P (MAP) Pulse Ox O2 Delivery O2 Flow Rate FiO2 05/29/18 21:32 63 146/51 05/29/18 20:00 98.5 63 20 146/51 (82) 95 05/29/18 16:55 134/58 05/29/18 16:00 59 05/29/18 16:00 98.2 63 20 134/58 (83) 95 05/29/18 14:07 64 137/56 05/29/18 12:00 69 05/29/18 12:00 98.1 64 20 137/56 (83) 98 05/29/18 11:22 137/56 05/29/18 09:00 Room Air 05/29/18 08:00 98.0 61 20 146/54 (84) 97 05/29/18 08:00 57 05/29/18 06:00 59 140/53 05/29/18 04:00 57 05/29/18 04:00 98.1 73 19 152/93 (112) 97 05/29/18 00:00 64 05/29/18 00:00 98.3 66 16 138/56 (83) 95 Intake and Output 05/28/18 05/29/18 19:00 07:00 Intake Total 225 ml Balance 225 ml IV Total 225 ml 2D Echo: EF 55%, Mild LVH, Mild MR/AR, RVSp 87 mmHg, Normal LVD function Microbiology Date/Time Source Procedure Growth Status 05/27/18 18:20 Urine,Clean Catch Urine Culture - Preliminary NO GROWTH AFTER 24 HOURS Resulted Objective HEENT: Normocephalic, anicteric, PERRLA, EOMI. NECK: No JVD, Carotids are +2 with no bruits. LUNGS: Clear to auscultation B/L. CARDIOVASCULAR: Normal S1 and also S2, grade 2/6 ESM, RV heave. ABDOMEN: Non-tender, non-distended. + Bowel sounds, no organomegaly. EXTREMITIES: No edema, clubbing or cyanosis. Peripheral pulses are +2. Hector Ventura MD May 29, 2018 23:54
[2018-05-30] VITALS: BP 134/50
[2018-05-30] MEDS: D5 1/2NS w/KCl 20mEq 1,000 ML IV SCH (03:38)
[2018-05-30 04:00] VITALS: BP 136/58
[2018-05-30] MEDS: dilTIAZem HCl 30mg tab ORAL SCH ×3 (05:17→21:35)
[2018-05-30 06:56] LABS: ALANINE AMINOTRANSFERASE 21 U/L (12-78); ALBUMIN/GLOBULIN RATIO 0.9 (1.0-2.7); ALKALINE PHOSPHATASE 90 U/L (46-116); ANION GAP 8 mmol/L (5-15); ASPARTATE AMINO TRANSFERASE 21 U/L (15-37); BILIRUBIN,TOTAL 0.8 MG/DL (0.2-1.0); BLOOD UREA NITROGEN 9 mg/dL (7-18); CALCIUM 8.4 MG/DL (8.5-10.1); CARBON DIOXIDE 27 MMOL/L (21-32); CHLORIDE 106 MMOL/L (98-107); CREATININE 0.9 MG/DL (0.55-1.30); PHOSPHORUS 2.6 MG/DL (2.5-4.9); POTASSIUM 4.1 MMOL/L (3.5-5.1); SODIUM 141 MMOL/L (136-145)
--- NOTE | 2018-05-30 07:21 | NUR ---
HAND-OFF: Report given to AMY Yeager. Pt is in stable condition; plan of care endorsed.
--- NOTE | 2018-05-30 07:22 | NUR ---
NURSE NOTES: Report received from AMY Gabriel. Pt is resting comfortably in bed, sleeping. No signs and symptoms of distress at this time. Respirations are even and unlabored on room air. IV site is patent, intact, and running fluids @ prescribed rate. Bed is at lowest position, brakes engaged, two side rails up, bed alarm on. Bed side table and call light within reach. Pt is in stable condition at this time; will continue to monitor.
[2018-05-30 08:00] VITALS: BP 132/43
[2018-05-30] MEDS: Thiamine 100mg tab ORAL SCH (08:23)
[2018-05-30] MEDS: Aspirin Baby 81mg NG SCH (08:23)
[2018-05-30] MEDS: levETIRAcetam 500mg/5ml Liquid NG SCH ×2 (08:24→21:37)
[2018-05-30] MEDS ORDERED: Imdur 30mg tab ORAL SCH ×2 (09:00→16:30)
[2018-05-30] MEDS: Nitroglycerin Patch 0.4mg TDERMAL SCH (11:21)
[2018-05-30 12:00] VITALS: BP 135/54
--- NOTE | 2018-05-30 15:50 | NUR ---
CASE MANAGEMENT:REVIEW 05/30/18 SI: SEIZURE. NSTEMI ALCOHOL INTOXICATION 99.4 73 20 135/54 95% ON RA TROPONIN(+) 0.920 IS: IMDUR PO QD KEPPRA PO Q12 CARDIZEM PO Q8HRS REMERON PO QHS IVF@75/HR ASA PO QD IV ATIVAN Q2HRS PRN : TELEMETRY STATUS
[2018-05-30 16:00] VITALS: BP 143/51
--- NOTE | 2018-05-30 16:22 | Nephrology Progress Note ---
Assessment/Plan Problem List: (1) Seizure disorder (2) Alcohol intoxication (3) NSTEMI (non-ST elevated myocardial infarction) Assessment Sz NSTEMI Etoh toxicity Plan Hydtrate asa nitro protonix thiamin per orders Subjective ROS Limited/Unobtainable: No Constitutional: Reports: other - anxious to go home Objective Objective Last 24 Hour Vital Signs Date Time Temp Pulse Resp B/P (MAP) Pulse Ox O2 Delivery O2 Flow Rate FiO2 05/30/18 14:23 67 135/54 05/30/18 12:00 99.4 73 20 135/54 (81) 95 05/30/18 12:00 67 05/30/18 11:21 132/43 05/30/18 09:00 Room Air 05/30/18 08:23 132/43 05/30/18 08:00 58 05/30/18 08:00 99.2 61 20 132/43 (72) 96 05/30/18 05:17 64 136/58 05/30/18 04:00 64 05/30/18 04:00 99.0 70 20 136/58 (84) 95 05/30/18 00:00 69 05/30/18 00:00 98.0 76 20 134/50 (78) 97 05/29/18 21:32 63 146/51 05/29/18 21:00 Room Air 05/29/18 20:00 98.5 63 20 146/51 (82) 95 05/29/18 20:00 59 05/29/18 16:55 134/58 Intake and Output 05/29/18 05/30/18 18:59 06:59 Intake Total 1350 ml Output Total 2250 ml 1000 ml Balance -900 ml -1000 ml Intake Oral 1350 ml Output Urine Total 2250 ml 1000 ml Laboratory Tests 05/30/18 05:40: Sodium Level 141, Potassium Level 4.1, Chloride Level 106, Carbon Dioxide Level 27, Anion Gap 8, Blood Urea Nitrogen 9, Creatinine 0.9, Estimat Glomerular Filtration Rate > 60, Glucose Level 113H, Calcium Level 8.4L, Phosphorus Level 2.6, Magnesium Level 1.9, Total Bilirubin 0.8, Aspartate Amino Transf (AST/SGOT ) 21, Alanine Aminotransferase (ALT/SGPT) 21, Alkaline Phosphatase 90, Troponin I 0.920H, Total Protein 6.3L, Albumin 3.0L, Globulin 3.3, Albumin/Globulin Ratio 0.9L Height (Feet): 5 Height (Inches): 8.00 Weight (Pounds): 150 General Appearance: no apparent distress Cardiovascular: normal rate Respiratory/Chest: lungs clear Abdomen: soft Gaetano Cantor MD May 30, 2018 16:22
--- NOTE | 2018-05-30 19:35 | NUR ---
HAND-OFF: Report given to AMY Beruemn.
--- NOTE | 2018-05-30 19:40 | NUR ---
NURSE NOTES: Received pt from AMY aMrquez. Pt awake, alert, and sitting up in the chair. Call light within reach. Will continue to monitor.
[2018-05-30 20:00] VITALS: BP 147/52
--- NOTE | 2018-05-30 21:45 | General Progress Note ---
Assessment/Plan Problem List: (1) Alcohol intoxication ICD Codes: F10.929 - Alcohol use, unspecified with intoxication, unspecified SNOMED: 66626627 (2) Seizure disorder ICD Codes: G40.909 - Epilepsy, unspecified, not intractable, without status epilepticus SNOMED: 649525002 (3) NSTEMI (non-ST elevated myocardial infarction) ICD Codes: I21.4 - Non-ST elevation (NSTEMI) myocardial infarction SNOMED: 76805082 Status: progressing Assessment/Plan afebrile reviewed chart and labs seizure no dt etoh abuse Subjective ROS Limited/Unobtainable: Yes Allergies: Coded Allergies: No Known Allergies (Unverified , 05/28/18) Objective Last 24 Hour Vital Signs Date Time Temp Pulse Resp B/P (MAP) Pulse Ox O2 Delivery O2 Flow Rate FiO2 05/30/18 21:35 60 147/52 05/30/18 16:52 143/51 05/30/18 16:05 99.0 05/30/18 16:00 63 05/30/18 16:00 99.0 68 20 143/51 (81) 97 05/30/18 14:23 67 135/54 05/30/18 12:00 99.4 73 20 135/54 (81) 95 05/30/18 12:00 67 05/30/18 11:21 132/43 05/30/18 09:00 Room Air 05/30/18 08:23 132/43 05/30/18 08:00 58 05/30/18 08:00 99.2 61 20 132/43 (72) 96 05/30/18 05:17 64 136/58 05/30/18 04:00 64 05/30/18 04:00 99.0 70 20 136/58 (84) 95 05/30/18 00:00 69 05/30/18 00:00 98.0 76 20 134/50 (78) 97 Intake and Output 05/29/18 05/30/18 19:00 07:00 Intake Total 1350 ml Output Total 2250 ml 1000 ml Balance -900 ml -1000 ml Intake Oral 1350 ml Output Urine Total 2250 ml 1000 ml Laboratory Tests 05/30/18 05:40: Sodium Level 141, Potassium Level 4.1, Chloride Level 106, Carbon Dioxide Level 27, Anion Gap 8, Blood Urea Nitrogen 9, Creatinine 0.9, Estimat Glomerular Filtration Rate > 60, Glucose Level 113H, Calcium Level 8.4L, Phosphorus Level 2.6, Magnesium Level 1.9, Total Bilirubin 0.8, Aspartate Amino Transf (AST/SGOT ) 21, Alanine Aminotransferase (ALT/SGPT) 21, Alkaline Phosphatase 90, Troponin I 0.920H, Total Protein 6.3L, Albumin 3.0L, Globulin 3.3, Albumin/Globulin Ratio 0.9L Height (Feet): 5 Height (Inches): 8.00 Weight (Pounds): 150 Cardiovascular: normal rate Respiratory/Chest: lungs clear Abdomen: soft Shala Tomlinson MD May 30, 2018 21:45
--- NOTE | 2018-05-30 23:49 | General Progress Note ---
Assessment/Plan Assessment/Plan (1) Alcohol dependence ICD Codes: F10.20 - Alcohol dependence, uncomplicated SNOMED: 55865728 (2) Alcohol withdrawal ICD Codes: F10.239 - Alcohol dependence with withdrawal, unspecified SNOMED: 050660512 Assessment/Plan Valium prn thiamine Remeron folate Subjective Neurologic/Psychiatric: Reports: anxiety, depressed Allergies: Coded Allergies: No Known Allergies (Unverified , 05/28/18) Objective Last 24 Hour Vital Signs Date Time Temp Pulse Resp B/P (MAP) Pulse Ox O2 Delivery O2 Flow Rate FiO2 05/30/18 21:35 60 147/52 05/30/18 16:52 143/51 05/30/18 16:05 99.0 05/30/18 16:00 63 05/30/18 16:00 99.0 68 20 143/51 (81) 97 05/30/18 14:23 67 135/54 05/30/18 12:00 99.4 73 20 135/54 (81) 95 05/30/18 12:00 67 05/30/18 11:21 132/43 05/30/18 09:00 Room Air 05/30/18 08:23 132/43 05/30/18 08:00 58 05/30/18 08:00 99.2 61 20 132/43 (72) 96 05/30/18 05:17 64 136/58 05/30/18 04:00 64 05/30/18 04:00 99.0 70 20 136/58 (84) 95 05/30/18 00:00 69 05/30/18 00:00 98.0 76 20 134/50 (78) 97 Intake and Output 05/29/18 05/30/18 19:00 07:00 Intake Total 1350 ml Output Total 2250 ml 1000 ml Balance -900 ml -1000 ml Intake Oral 1350 ml Output Urine Total 2250 ml 1000 ml Laboratory Tests 05/30/18 05:40: Sodium Level 141, Potassium Level 4.1, Chloride Level 106, Carbon Dioxide Level 27, Anion Gap 8, Blood Urea Nitrogen 9, Creatinine 0.9, Estimat Glomerular Filtration Rate > 60, Glucose Level 113H, Calcium Level 8.4L, Phosphorus Level 2.6, Magnesium Level 1.9, Total Bilirubin 0.8, Aspartate Amino Transf (AST/SGOT ) 21, Alanine Aminotransferase (ALT/SGPT) 21, Alkaline Phosphatase 90, Troponin I 0.920H, Total Protein 6.3L, Albumin 3.0L, Globulin 3.3, Albumin/Globulin Ratio 0.9L Height (Feet): 5 Height (Inches): 8.00 Weight (Pounds): 150 General Appearance: alert, agitated Ryan Raphael MD May 30, 2018 23:49
--- NOTE | 2018-05-30 23:54 | Cardiology Progress Note ---
Assessment/Plan Assessment/Plan 1. Elevated troponin level in a patient with seizure disease possibly due to CK rise associated with tonic clonic activities, although RV strain in association with pulmonary HTN could possibly cause elevation of troponin level. 2. Hx of cocaine abuse, urine tox with negative this admission, no e/o cardiomyopathy on echo with LVEF at 55%. 3. Severe pulmonary HTN, pulmonary consult. Subjective Subjective Sinus rhythm at rate of 60. Objective Last 24 Hour Vital Signs Date Time Temp Pulse Resp B/P (MAP) Pulse Ox O2 Delivery O2 Flow Rate FiO2 05/30/18 21:35 60 147/52 05/30/18 16:52 143/51 05/30/18 16:05 99.0 05/30/18 16:00 63 05/30/18 16:00 99.0 68 20 143/51 (81) 97 05/30/18 14:23 67 135/54 05/30/18 12:00 99.4 73 20 135/54 (81) 95 05/30/18 12:00 67 05/30/18 11:21 132/43 05/30/18 09:00 Room Air 05/30/18 08:23 132/43 05/30/18 08:00 58 05/30/18 08:00 99.2 61 20 132/43 (72) 96 05/30/18 05:17 64 136/58 05/30/18 04:00 64 05/30/18 04:00 99.0 70 20 136/58 (84) 95 05/30/18 00:00 69 05/30/18 00:00 98.0 76 20 134/50 (78) 97 Intake and Output 05/29/18 05/30/18 19:00 07:00 Intake Total 1350 ml Output Total 2250 ml 1000 ml Balance -900 ml -1000 ml Intake Oral 1350 ml Output Urine Total 2250 ml 1000 ml 2D Echo: EF 55%, Mild LVH, Mild MR/AR, RVSp 87 mmHg, Normal LVD function Laboratory Tests Test 05/30/18 05:40 Sodium Level 141 MMOL/L (136-145) Potassium Level 4.1 MMOL/L (3.5-5.1) Chloride Level 106 MMOL/L (98-107) Carbon Dioxide Level 27 MMOL/L (21-32) Anion Gap 8 mmol/L (5-15) Blood Urea Nitrogen 9 mg/dL (7-18) Creatinine 0.9 MG/DL (0.55-1.30) Estimat Glomerular Filtration Rate > 60 mL/min (>60) Glucose Level 113 MG/DL (74-106) H Calcium Level 8.4 MG/DL (8.5-10.1) L Phosphorus Level 2.6 MG/DL (2.5-4.9) Magnesium Level 1.9 MG/DL (1.8-2.4) Total Bilirubin 0.8 MG/DL (0.2-1.0) Aspartate Amino Transf (AST/SGOT) 21 U/L (15-37) Alanine Aminotransferase (ALT/SGPT) 21 U/L (12-78) Alkaline Phosphatase 90 U/L (46-116) Troponin I 0.920 ng/mL (0.000-0.056) Total Protein 6.3 G/DL (6.4-8.2) L Albumin 3.0 G/DL (3.4-5.0) L Globulin 3.3 g/dL Albumin/Globulin Ratio 0.9 (1.0-2.7) L Objective HEENT: Normocephalic, anicteric, PERRLA, EOMI. NECK: No JVD, Carotids are +2 with no bruits. LUNGS: Clear to auscultation B/L. CARDIOVASCULAR: Normal S1 and also S2, grade 2/6 ESM, RV heave. ABDOMEN: Non-tender, non-distended. + Bowel sounds, no organomegaly. EXTREMITIES: No edema, clubbing or cyanosis. Peripheral pulses are +2. Hector Ventura MD May 30, 2018 23:54
[2018-05-31] VITALS: BP 136/48
[2018-05-31 04:00] VITALS: BP 128/48
[2018-05-31] MEDS: dilTIAZem HCl 30mg tab ORAL SCH (05:28)
--- NOTE | 2018-05-31 07:27 | NUR ---
HAND-OFF: Report given to AMY Leonard. Pt stable.
--- NOTE | 2018-05-31 07:27 | NUR ---
NURSE NOTES: Received report from [place]/RN, Patient awake and alert, No sign of distress/SOB noted. IV intact, Bed in low Position, Call light within reach. Will continue plan of care.
[2018-05-31 08:00] VITALS: BP 132/50
[2018-05-31] MEDS: levETIRAcetam 500mg/5ml Liquid NG SCH (08:49)
[2018-05-31] MEDS: Aspirin Baby 81mg NG SCH (08:49)
[2018-05-31] MEDS: Thiamine 100mg tab ORAL SCH (08:49)
[2018-05-31] MEDS ORDERED: Imdur 30mg tab ORAL SCH (09:00)
--- NOTE | 2018-05-31 10:08 | NUR ---
NURSE NOTES: Patient is cleared by Dr. Ventura to be discharge.
[2018-05-31] MEDS ORDERED: HYDROCHLOROTHIA25 MG ORAL (10:13)
[2018-05-31] MEDS: Nitroglycerin Patch 0.4mg TDERMAL SCH (11:04)
[2018-05-31 12:00] VITALS: BP 126/63
--- NOTE | 2018-05-31 12:00 | NUR ---
NURSE NOTES: Discharge instruction given, Patient verbalized understanding. Heart monitor and IV removed, skin intact. Belonging check done. Patient is in stable condition. Left with family member via private Vehicle.
--- NOTE | 2018-05-31 13:57 | Nephrology Progress Note ---
Assessment/Plan Problem List: (1) Seizure disorder (2) Alcohol intoxication (3) NSTEMI (non-ST elevated myocardial infarction) Assessment: Trop Lowering Assessment stable on medical treatment Sz NSTEMI Etoh toxicity Plan Hydtrate asa nitro protonix thiamin per orders ? DC Subjective ROS Limited/Unobtainable: No Interval Events/Complaints seen at 8 am Objective Objective Last 24 Hour Vital Signs Date Time Temp Pulse Resp B/P (MAP) Pulse Ox O2 Delivery O2 Flow Rate FiO2 05/31/18 12:00 97.8 68 18 126/63 (84) 95 05/31/18 11:04 132/50 05/31/18 09:00 Room Air 05/31/18 08:48 132/50 05/31/18 08:00 98.4 64 20 132/50 (77) 100 05/31/18 08:00 72 05/31/18 05:28 62 128/48 05/31/18 04:00 62 05/31/18 04:00 98.6 67 20 128/48 (74) 96 05/31/18 00:00 64 05/31/18 00:00 98.0 72 20 136/48 (77) 93 05/30/18 21:35 60 147/52 05/30/18 21:00 Room Air 05/30/18 20:00 98.1 60 20 147/52 (83) 99 05/30/18 20:00 62 05/30/18 16:52 143/51 05/30/18 16:05 99.0 05/30/18 16:00 63 05/30/18 16:00 99.0 68 20 143/51 (81) 97 05/30/18 14:23 67 135/54 Intake and Output 05/30/18 05/31/18 19:00 07:00 Intake Total 820 ml Output Total 1450 ml Balance -630 ml Intake Oral 820 ml Output Urine Total 1450 ml # Voids 1 # Bowel Movements 1 Laboratory Tests 05/31/18 05:35: Troponin I 0.775H Height (Feet): 5 Height (Inches): 8.00 Weight (Pounds): 150 General Appearance: no apparent distress Objective no change Gaetano Cantor MD May 31, 2018 13:57
--- NOTE | 2018-05-31 14:00 | Consultation ---
DATE OF CONSULTATION: 05/28/2018 CARDIOLOGY CONSULTATION CONSULTING PHYSICIAN: Hector Ventura M.D. REFERRING PHYSICIAN: Shala Tomlinson M.D. REASON FOR CONSULTATION: Management of elevated troponin I level. HISTORY OF PRESENT ILLNESS: The patient is a very unfortunate 47-year-old gentleman, who presents to the hospital with witnessed seizure activities by coworkers, which were described as generalized tonic-clonic, lasted about a minute, was not associated with any trauma. The patient has postictal state. He admits to had been taking cocaine, however, his urine drug screen was negative for cocaine. At the time of arrival to the hospital, blood pressure was 165/75 mmHg, heart rate was 77. A 12-lead electrocardiogram was significant for sinus rhythm, at a rate of 76 with LVH and LVH repolarization abnormalities. Laboratory findings in the emergency department showed elevation of troponin I level to 1.08. Cardiology consultation was made for assessment of this condition. The patient at the bedside denies any chest pain or shortness of breath. PAST MEDICAL HISTORY: Seizure disorder. PAST SURGICAL HISTORY: None. FAMILY HISTORY: No premature coronary artery disease in first-degree relatives. REVIEW OF SYSTEMS: A 12-system review done essentially negative except what is mentioned in the history of present illness. MEDICATIONS: List of medications, the patient does not take any medication at home. PHYSICAL EXAMINATION: VITAL SIGNS: Blood pressure was 165/75, pulse of 77, respirations 16, temperature 98.4 degrees Fahrenheit, and O2 saturation 98% on room air. GENERAL: The patient is a very unfortunate 47-year-old gentleman, in no apparent respiratory distress. HEENT: Atraumatic and normocephalic. Anicteric. Pupils are equal, round, and reactive to light and accommodation. Extraocular muscles are intact. NECK: JVP is less than 5 cm. No carotid bruit. Carotid upstroke is 2+ bilaterally. CARDIOVASCULAR: Normal S1, S2. Regular rate and rhythm. No murmurs, gallops, or rubs. PMI is at fourth intercostal space at the midclavicular line. LUNGS: Clear to auscultation bilaterally. ABDOMEN: Soft, nontender, and nondistended. No hepatosplenomegaly. Positive bowel sounds. EXTREMITIES: No evidence of edema, clubbing, or cyanosis. LABORATORY FINDINGS: CBC, WBC is 5.2, hemoglobin of 15.6, hematocrit 45.0, platelet count 238. Sodium 144, potassium 3.4, chloride 105, bicarbonate 24, BUN 11, creatinine 0.9, glucose is 153. Total CK was 347. Troponin I was 1.08. A 2D echocardiography is pending. ASSESSMENT AND PLAN: The patient is a very unfortunate 47-year-old gentleman, seen in Cardiology consultation. Slight elevation of troponin I level. I suspect that this is due to muscular origin in view of generalized tonic-colonic seizures and elevation of total CK is likely was associated with elevation of troponin I level. A 12-lead electrocardiogram is not suggestive of any ischemic changes. We will obtain a 2D echocardiography to assess wall motion. Should the patient's LV function appears to be less than 40%, then we will proceed with cardiac catheterization. Of note, the cocaine was not visualized in his urine drug test. I would agree with starting the patient on AV kaitlynn agents. I would like to thank Dr. Tomlinson, for the courtesy of this consultation. Hector Ventura M.D. DR: IAM JOB#: [id number] CC:
--- NOTE | 2018-06-02 14:28 | Cardiology Report ---
APPROVED REPORT EXAM: Two-dimensional and M-mode echocardiogram with Doppler and color Doppler. INDICATION Cardiomyopathy M-Mode DIMENSIONS IVSd1.5 (0.7-1.1cm)Left Atrium (MM)3.5 (1.6-4.0cm) LVDd6.4 (3.5-5.6cm)Aortic Root4.0 (2.0-3.7cm) PWd1.1 (0.7-1.1cm)Aortic Cusp Exc.2.7 (1.5-2.0cm) IVSs1.6 cm LVDs4.8 (2.5-4.0cm) PWs1.2 cm Mild left ventricular enlargement. Normal left ventricular systolic function and wall motion. Left ventricular ejection fraction estimated to be 55 %. Mild left ventricular hypertrophy. Anterior Echo-free space, may be due to pericardial fat or effusion. All other cardiac chamber sizes are within normal limits. Focal aortic valve sclerosis with adequate cusp excursion. Bicuspid aortic valve can not be excluded. Thickened mitral valve leaflets with normal excursion. Mitral annulus and aortic root calcification. Pulmonic valve not well visualized. Normal tricuspid valve structure. IVC dilated at 1.7 cm with slight physiologic collapse. A color flow and spectral Doppler study was performed and revealed: Mild aortic regurgitation. Peak aortic valve gradient of 42 mm Hg and a mean of 25 mmHg. Aortic valve area 2.2 cm2 calculated by continuity equation. Mild mitral regurgitation. Mitral diastolic velocities suggest normal LV diastolic function. Moderate tricuspid regurgitation. Tricuspid systolic velocities suggests peak right ventricular systolic pressure of 87 mmHg, consistent with severe pulmonary hypertension.
--- NOTE | 2018-06-03 10:07 | Discharge Summary ---
Discharge Summary Discharge Summary _ DATE OF ADMISSION: 05/27/2018 DATE OF DISCHARGE: 05/31/2018 DISCHARGED BY: Dr Tomlinson REASON FOR ADMISSION: 47 years old male with past medical history of hypertension, per paramedics had a witnessed by coworkers seizure episode, described as generalized tonic- clonic seizure, lasted for 1 minute. Patient did not hit his head on the ground. Patient presented post ictal. Patient admitted to using cocaine. Patient did not much cooperated with history in ED. Upon evaluation vital signs revealed elevated blood pressure 165/75. Laboratory workup revealed no leukocytosis ,stable hemoglobin and hematocrit. Potassium 3.4 ,stable electrolytes otherwise and renal parameters. Glucose 153. Stable LFT. Troponin elevated- 1.088. CK 347. Albumin 3.9. Serum alcohol 454. Serum Tylenol and salicylate level negative. Urine toxicology screen was negative. Urinalysis revealed evidence of possible UTI. CT of the head revealed no acute intracranial pathology. Chest x-ray demonstrated no acute cardiopulmonary pathology. EKG revealed T wave inversion in lateral leads. [facility] cardiology consulted , who did not believe that the patient was having STEMI. Patient received aspirin in the emergency department. Patient was admitted to telemetry floor for further management. CONSULTANTS: dean of girls Dr. Ventura neurologist Dr. Arndt roast master Dr. Cantor psychiatrist [facility] COURSE: Patient admitted to telemetry floor and started on IV fluids with vitamins/ banana bag. Anxiolytics were on board as needed for possible withdrawal symptoms. Magnesium was found to be borderline. Additional magnesium provided. Serial troponin trending down, from initial 1.088 down to last - 0.775. Echocardiogram revealed ejection fraction of 55% with mild left ventricular hypertrophy. No evidence of wall motion abnormality. Mild mitral regurgitation and moderate tricuspid regurgitation. Right ventricular systolic pressure of 87 , consistent with severe pulmonary hypertension. Lipid panel revealed elevated total cholesterol 219 , stable LDL. Patient was on antiplatelet therapy with aspirin. Patient was started on statin. Patient started on nitrates and Cardizem. Blood pressure stabilized. According to dean of girls, elevated troponin in patient with seizure disorder was possibly due to CK rise , associated wit seizure activity, although right ventricle strain in association with the pulmonary hypertension could possibly also cause elevation of troponin level. Dispatch Lead recommended to proceed with cardiac catheterization only if ejection fraction 40% or low. Patient denied chest pain. Pulse oximetry was stable on room air. Neurologist followed for management of new onset of seizures. Per neurologist, patient probably had alcohol induced seizure, probably partially withdrawal. Seizure precaution maintained. Patient started on Keppra. When IV fluids stopped, patient was transitioned to oral thiamine and folic acid. EEG was normal, however normal EEG does not rule out seizure disorder. MRI of the brain was negative with and without contrast. RPR and FTA-ABS were both nonreactive Per neurologist recommended to taper Keppra , which can be done as outpatient. No further seizure activity while in the hospital. Patient started on empiric antibiotic. Urine culture was negative. Antibiotic stopped. Knitting Machine Fixer Head followed. Renal parameters and electrolytes were closely monitored. Electrolytes further corrected as needed. Nephrotoxins were avoided. Patient was on GI prophylaxis. Hemoglobin A1c 5.5. Psychiatrist followed. Valium was on board as needed for withdrawal symptoms. Patient was counseled on abstinence from alcohol and illicit street drugs. Patient clinically stabilized and was ready for discharge home. FINAL DIAGNOSES: Elevated troponin, possibly due to CK rise associated with tonic-clonic seizure versus right ventricle strain in association with severe pulmonary HTN Possible NSTEMI Severe pulmonary hypertension Alcohol intoxication Probably alcohol induced seizures Alcohol dependence Alcohol withdrawal History of cocaine abuse DISCHARGE MEDICATIONS: See Medication Reconciliation list. DISCHARGE INSTRUCTIONS: Patient was discharged home. Follow up with primary care provider in one week. Outpatient follow-up with neurologist recommended. I have been assigned to dictate discharge summary for this account. I was not involved in the patient's management. Darcy Churchill NP Jun 03, 2018 10:07
== END 2018-05-31 12:05 | disposition home or self-care (01) | DRG 774 ==
LOC: EDBD 18:19 → EMR 18:49 → 2E 19:42 → EDBEDREQ 20:48 → 2E 22:39
DX: F10.239 Alcohol dependence with withdrawal, unspecified (principal); F14.10 Cocaine abuse, uncomplicated; I21.4 Non-ST elevation (NSTEMI) myocardial infarction; I27.20 Pulmonary hypertension, unspecified; F10.229 Alcohol dependence with intoxication, unspecified; G40.89 Other seizures; I10 Essential (primary) hypertension; I34.0 Nonrheumatic mitral (valve) insufficiency; I36.1 Nonrheumatic tricuspid (valve) insufficiency
CPT/HCPCS: 36415; 70450; 70552; 71045; 80053; 80061; 80307; 80329; 81003; 82550; 83036; 83735; 84100; 84443; 84484; 84550; 85025; 86140; 86592; 86780; 87086; 93005; 93306; 95819; 96361; 96365; 96368; 96375; 99291; A9585